=== PATIENT | male | born 1970 | race Caucasian/White ===

== ENCOUNTER 2024-01-12 08:03 | Day surgery (SDC) | payer OTHER, SELFPAY ==
[2024-01-12] VITALS (23 sets, daily range): BP systolic 129–192; BP diastolic 80–114; PULSE 85–108; RESP 14–28; TEMP 36.4–36.6; O2SAT 93–99; BMI 26.6
--- NOTE | 2024-01-12 08:13 | ED.GENADUL_ITS ---
Discharge Plan Disposition Patient Disposition: Admit to [facility] Condition: Stable Condition: Good Discharge Details Chief Complaint: Abd Prob Clinical Impression: Obstruction of esophagus due to food impaction Attending Provider: Kashif Sousa Primary Care Provider: Olga,Local ED Provider: Brandon Guerrero Discharge Instructions Activity:: Activity as Tolerated Diet:: Soft and liquid Discharge Orders Discharge Orders: Discharge Order (Routine); Ordered 01/12/24 Ordered By: Kashif Sousa Discharge Data Discharge Date/Time-TO BE ENTERED AT DEPARTURE: 01/12/24 11:07 HPI General Date/Time Provider Initiated Documentation: 01/12/24 08:06 . HPI Narrative: 53 year-old male presents to ED today by POV/ambulating with a chief complaint of feels like a bit of steak is caught in his esophagus since last night around dinnertime, cannot swallow anything without it coming right back up. Quality described as central chest pain directly resulted from feeling of incomplete swallow last night, no radiation to severe ETOH use, fever, bloody emesis, shortness of breath, cough. Severity is described as 10/10. Palliating factors include nothing helping. Provoking factors include nothing specific. Patient not anticoagulated. Related Data Home Medications Medication Instructions Recorded Confirmed gabapentin 100 mg capsule 100 mg PO TID 01/12/24 01/12/24 meloxicam 15 mg tablet 15 mg PO DAILY 01/12/24 01/12/24 pantoprazole 40 mg tablet,delayed 40 mg PO DAILY #30 tabs 01/12/24 release (Protonix) Previous Rx's Medication Instructions Recorded pantoprazole 40 mg tablet,delayed 40 mg PO DAILY #30 tabs 01/12/24 release (Protonix) Allergies Allergy/AdvReac Type Severity Reaction Status Date / Time No Known Allergies Allergy Unverified 01/12/24 08:07 General Stated Complaint: Abd Prob VIVIAN: 3 Review of Systems All systems reviewed & are unremarkable except as noted in HPI and below Exam Narrative Exam Narrative: GENERAL APPEARANCE: Well-nourished, non-toxic, awake and alert, atraumatic, no acute distress. SKIN: Warm, pink, dry, intact, without rashes/lesions/ulcerations. HEAD: Normocephalic, atraumatic, normal hair distribution for gender/age. EYES: Pupils PERRLA, EOMs intact without nystagmus, normal conjunctiva, no exudates on lids/lashes. ENT: Nares patent, no circumoral cyanosis, no facial swelling NECK: Supple, trachea midline, painless cervical ROM. LUNGS/CHEST: Lungs CTA bilaterally- mild rales diffusely without hypoxia, non- labored respirations, normal A/P diameter, symmetrical expansion, no chest wall deformity, no pleuritic chest tenderness HEART (CV/PV): Regular rate and rhythm without murmur, no peripheral edema, no JVD. ABDOMEN: Soft, non-distended, no guarding, no tenderness. MSK: Normal ROM, no swelling/deformity to bilateral UEs or LEs, moving all extremities without weakness, no cyanosis, spine midline without tenderness, normal curvature. NEURO: Mental Status AAOx4 - alert to person, place, time, events No facial droop, no forehead involvement. Motor: No focal weakness - strength 5/5 in bilateral UEs and LEs, proximal and distal, symmetric. Sensory: sensation intact to light touch globally. Gait normal: patient ambulated without ataxia into ED room. PSYCH: euthymic, cooperative, pleasant, appropriate speech Course Vital Signs Vital signs: Vital Signs Temperature 36.5 C 01/12/24 08:08 Pulse 96 H 01/12/24 08:08 Respiratory Rate 16 01/12/24 08:08 Blood Pressure 134/91 H 01/12/24 08:08 Pulse Oximetry 96 01/12/24 08:08 Temperature 36.5 C 01/12/24 08:08 Temperature Source Temporal Artery Scan 01/12/24 08:08 Pulse 96 H 01/12/24 08:08 Respiratory Rate 16 01/12/24 08:08 Respiratory Effort Normal, Non-Labored 01/12/24 08:09 Blood Pressure 134/91 H 01/12/24 08:08 Blood Pressure Position Sitting 01/12/24 08:08 Pulse Oximetry 96 01/12/24 08:08 Oxygen Delivery Method Room Air 01/12/24 08:08 Oxygen Flow Rate 0 01/12/24 08:08 Pain Level 9 01/12/24 08:08 Medical Decision Making This dictation utilizes [id number] dictation software and may contain unedited grammatical errors. 53 y/o M presents to ED today with a chief complaint of esophageal food bolus of steak from dinnertime last night. Endorses central chest pain, denies shortness of breath, cough, dizziness, near syncope. Patient denies severe ETOH use and denies vomiting marla blood, questions red tinge to some vomitus but did have a half a glass of red wine with dinner. Patients' medical history: Noncontributory, takes meloxicam and gabapentin for MSK reasons, Protonix for GERD. Family and social history: Noncontributory. Pertinent exam findings / vital signs include benign cardiopulmonary exam-some mild Rales but I do not suspect any aspiration pneumonia at this time, no coughing. Neuro intact, nontoxic vitals Differential / pathologies of concern include esophageal food bolus, Anastacia- Hurst tear, less likely Boerhaave syndrome as the patient has had many hours onset and is afebrile and not toxic, ACS is less likely as well. Diagnostic studies of: -CBC, CMP, Lactate, Lipase, Trop I, PT/PTT, Type and Screen, CT Chest & Neck w Contrast. -CBC shows leuks 10.9 -Coags WNL -CMP benign -Lactate WNL -Lipase neg -trop negative -CT shows multi level esohpageal obstructions with fluid in between two solid bolus' Interventions of: -on arrival attempted EZ Gas granules & Coca-Cola to dissolve food bolus without relief, added Ativan- no relief - admitted to Gen Surg for EGD to clear the bolus. ED Course/Assessment/Plan: 53-year-old male presents with likely food bolus obstructing his esophagus since dinnertime last night where he ate steak. He denies severe EtOH use, he is unable to clear the food bolus with easy gas granules and Coca-Cola, I added Ativan which is also ineffective. I consulted with general surgery Dr. Sousa who accepted the patient for admission likely EGD to clear his esophageal bolus, he received 1 mg hydromorphone prior to admission. No complications in department. Findings not consistent with ACS, his troponin is negative with reliable onset, no sign of esophageal perforation or Anastacia-Hurst tear on CT and he is not vomiting marla blood. Disposition of Obstruction of Esophagus due to Food Impaction. Patient verbalized understanding of the plan and return to ED criteria and engaged in shared decision making. Medical Records Medical records reviewed: Yes I reviewed the patient's medical records. Medical records narrative: [facility] here. Imaging Data Radiologic Study: Attestation: I personally reviewed and interpreted this imaging study as follows: Imaging: CT Scan Radiologist's impression: EXAM: CT NECK CHEST W CLINICAL HISTORY: esophageal pain TECHNIQUE: Imaging Protocol: Axial computed tomography images with coronal and sagittal reformatted images were created and reviewed CONTRAST MATERIAL: Intravenous: Omnipaque 350Contrast volume:120 mL. COMPARISON: No exams were available for comparison FINDINGS: Orbits and orbital soft tissues: Within normal limits. Visualized paranasal sinuses: There is mild mucosal thickening in the maxillary sinuses bilaterally. The remaining visualized paranasal sinuses and mastoid air cells are clear. Nasopharynx: Within normal limits. Oropharynx: Within normal limits. Hypopharynx: Within normal limits. Larynx: Within normal limits. Retropharyngeal space: Within normal limits. Parotids/submandibular: Within normal limits. Thyroid gland: Within normal limits. Lymphadenopathy: There is scattered lymph nodes seen along the level one to level three all measuring less than 8 mm in short axis diameter which are physiologic in nature. Trachea: Within normal limits. Lung apices: Mild paraseptal emphysematous changes are present. No infiltrates are seen in the lung apices. Bones: Within normal limits for the patient's age. Carotids/Jugular: Within normal limits. Soft tissues: Within normal limits. Tracheobronchial tree: Patent where visualized. No debris is seen within the airway. No mucous plugging is present. Pulmonary parenchyma: Mild paraseptal emphysematous changes are present. No focal consolidating infiltrates are seen. No architectural distortion. Mediastinum and Ratna: No dominant adenopathy or fluid collection. There is a bolus of material seen within the upper soft the guests (series 8, images [id number] 152). This may represent ingested material. There is an air-fluid level seen in the mid and distal esophagus. There also is a bolus of material seen in the distal esophagus at the gastroesophageal junction (series 8, image [id number]). No pneumomediastinum. Thyroid gland: Unremarkable. Pleura: No effusion or pneumothorax. Heart: The heart is not dilated. Mild coronary artery calcification is present. No pericardial effusion. Aorta: Thoracic aorta non-dilated. No evidence of dissection. Pulmonary arteries: Due to the timing of the bolus, pulmonary artery opacification is suboptimal for emboli. Upper abdomen: Fatty infiltration of the liver. Simple right renal cysts. No follow-up is recommended. Lymph nodes: Within normal limits. Bones: Old right rib fractures. There is a subacute fracture of the posterior aspect of the right 7th rib. Soft tissues: Unremarkable. IMPRESSION: 1. Bolus of soft tissue seen in the upper esophagus and at the gastroesophageal junction which may reflect retained ingested material. No evidence of aspiration, pneumoperitoneum or bone density material. No bowel wall thickening. 2. No acute pulmonary process. 3. Subacute fracture of the posterior aspect of the right 7th rib. 4. Findings were discussed with Brandon Guerrero at 10:30 a.m. on 01/12/2024. Lab Data Lab results reviewed: Yes I reviewed the patient's lab results. Labs: Laboratory Tests Range/Units 01/12/24 08:37 WBC (4.4-10.8) 10^3/uL 10.93 H RBC (4.36-5.78) 10^6/uL 4.27 L Hgb (13.5-17.5) g/dL 14.4 Hct (40.0-50.0) % 42.5 MCV (80-95) fL 100 H MCH (27.0-33.0) pg 33.7 H MCHC (32.0-36.0) % 33.9 RDW (11.8-14.1) % 12.4 Plt Count (130-400) 10^3/uL 295 MPV (8.0-11.0) fL 10.3 Immature Gran % 0.4 Neutrophils % 67.4 Lymphocytes % 20.0 Monocytes % 8.7 Eosinophils % 2.8 Basophils % 0.7 Nucleated RBC % (0.0-0.3) % 0.0 Absolute Neutrophils (1.2-6.7) 10^3/uL 7.37 H Absolute Lymphocytes (1.2-3.4) 10^3/uL 2.19 Absolute Monocytes (0.1-0.8) 10^3/uL 0.95 H Absolute Eosinophils (0.0-0.7) 10^3/uL 0.31 Absolute Basophils (0.0-0.2) 10^3/uL 0.08 PT (9.1-11.1) sec 10.1 INR (0.9-1.1) 1.0 APTT (23.6-32.8) sec 24.3 VBG Lactate (0.6-1.4) mmol/L 1.1 Sodium (136-145) mmol/L 142 Potassium (3.5-5.1) mmol/L 4.2 Chloride (98-107) mmol/L 104 Carbon Dioxide (21.0-32.0) mmol/L 23.8 Anion Gap (3-11) mmol/L 14.2 H BUN (7-18) mg/dL 9 Creatinine (0.70-1.30) mg/dL 1.0 Est GFR (CKD-EPI 2020) (mL/min/1.73m2) 90.00 Glucose (74-106) mg/dL 88 Calcium (8.5-10.1) mg/dL 9.2 Total Bilirubin (0.2-1.0) mg/dL 1.1 H AST (15-37) U/L 74 H ALT (16-63) U/L 99 H Alkaline Phosphatase (46-116) U/L 87 Troponin I (< or =60) ng/L < 50 Total Protein (6.4-8.2) g/dL 8.5 H Albumin (3.4-5.0) g/dL 4.1 Lipase (16-77) U/L 18 Patient ABO/Rh A Positive Antibody Screen NEGATIVE Quality:SDOH Health Related Social Needs: No Data to Display PFSH All Active Problems (Updated 01/13/24 @ 15:14 by LEONORA [place]) Obstruction of esophagus due to food impaction (Acute) Esophageal foreign body (Acute) Social History Smoking/Tobacco Use Status: Never Smoking risk assessment performed?: Yes Alcohol Intake: current Alcohol Intake frequency: holidays/special occasions only Drug use: Rarely Substance use type: marijuana Housing: house Do you feel safe at home: Yes Do you feel safe in your relationship?: Yes
[2024-01-12] MEDS: Simethicone/Sod Bicarb/Cit Ac, 4 gram PACKET 1 PACKET PO (08:24)
[2024-01-12] MEDS: ACETAMINOPHEN 1,000 MG/100 ML BTL 400 MG IVPB (08:40)
[2024-01-12 08:44] LABS: Abs Immature Grans 0.04 10^3/uL (0.0-0.06); Absolute Basophil Count 0.08 10^3/uL (0.0-0.2); Absolute Eosinophil Count 0.31 10^3/uL (0.0-0.7); Absolute Lymphocyte Count 2.19 10^3/uL (1.2-3.4); Absolute Monocyte Count 0.95 10^3/uL (0.1-0.8); Basophils % 0.7; Eosinophils % 2.8; HCT 42.5 % (40.0-50.0); HGB 14.4 g/dL (13.5-17.5); Immature Grans % 0.4; MCH 33.7 pg (27.0-33.0); MCHC 33.9 % (32.0-36.0); MCV 100 fL (80-95); MPV 10.3 fL (8.0-11.0); Monocytes % 8.7; Neutrophils % 67.4; Platelet Count 295 10^3/uL (130-400); RBC 4.27 10^6/uL (4.36-5.78); RDW 12.4 % (11.8-14.1); RDW-SD 45.6 fL; WBC 10.93 10^3/uL (4.4-10.8)
[2024-01-12 08:45] LABS: Lactate 1.1 mmol/L (0.6-1.4)
[2024-01-12 08:47] LABS: Absolute Neutrophil Count 7.37 10^3/uL (1.2-6.7)
[2024-01-12 09:08] LABS: ALT 99 U/L (16-63); AST 74 U/L (15-37); Albumin 4.1 g/dL (3.4-5.0); Alkaline Phosphatase 87 U/L (46-116); Anion Gap 14.2 mmol/L (3-11); BUN 9 mg/dL (7-18); Bilirubin, Total 1.1 mg/dL (0.2-1.0); CO2 23.8 mmol/L (21.0-32.0); Calcium 9.2 mg/dL (8.5-10.1); Chloride 104 mmol/L (98-107); Glucose 88 mg/dL (74-106); Lipase 18 U/L (16-77); PTT Activated 24.3 sec (23.6-32.8); Potassium 4.2 mmol/L (3.5-5.1); Prothrombin Time 10.1 sec (9.1-11.1); Sodium 142 mmol/L (136-145); Total Protein 8.5 g/dL (6.4-8.2); Troponin I < 50 ng/L (< or =60)
[2024-01-12] MEDS: Normal Saline - Diluent 50 ML VIAL IJ (09:22)
[2024-01-12] MEDS: Omnipaque 350 MG/ML 100 ML BTL IJ (09:23)
[2024-01-12] MEDS: Omnipaque 350 MG/ML 50 ML BTL 20 ML IJ (09:26)
--- NOTE | 2024-01-12 09:35 | DI.CT_ITS ---
Exam(s) CT NECK CHEST W EXAM: CT NECK CHEST W CLINICAL HISTORY: esophageal pain TECHNIQUE: Imaging Protocol: Axial computed tomography images with coronal and sagittal reformatted images were created and reviewed CONTRAST MATERIAL: Intravenous: Omnipaque 350Contrast volume:120 mL. COMPARISON: No exams were available for comparison FINDINGS: Orbits and orbital soft tissues: Within normal limits. Visualized paranasal sinuses: There is mild mucosal thickening in the maxillary sinuses bilaterally. The remaining visualized paranasal sinuses and mastoid air cells are clear. Nasopharynx: Within normal limits. Oropharynx: Within normal limits. Hypopharynx: Within normal limits. Larynx: Within normal limits. Retropharyngeal space: Within normal limits. Parotids/submandibular: Within normal limits. Thyroid gland: Within normal limits. Lymphadenopathy: There is scattered lymph nodes seen along the level one to level three all measurin g less than 8 mm in short axis diameter which are physiologic in nature. Trachea: Within normal limits. Lung apices: Mild paraseptal emphysematous changes are present. No infiltrates are seen in the lung apices. Bones: Within normal limits for the patient's age. Carotids/Jugular: Within normal limits. Soft tissues: Within normal limits. Tracheobronchial tree: Patent where visualized. No debris is seen within the airway. No mucous plugg ing is present. Pulmonary parenchyma: Mild paraseptal emphysematous changes are present. No focal consolidating infi ltrates are seen. No architectural distortion. Mediastinum and Ratna: No dominant adenopathy or fluid collection. There is a bolus of material seen w ithin the upper soft the guests (series 8, images [id number]). This may represent ingested material. Th ere is an air-fluid level seen in the mid and distal esophagus. There also is a bolus of material se en in the distal esophagus at the gastroesophageal junction (series 8, image [id number]). No pneumomedi astinum. Thyroid gland: Unremarkable. Pleura: No effusion or pneumothorax. Heart: The heart is not dilated. Mild coronary artery calcification is present. No pericardial effus ion. Aorta: Thoracic aorta non-dilated. No evidence of dissection. Pulmonary arteries: Due to the timing of the bolus, pulmonary artery opacification is suboptimal for emboli. Upper abdomen: Fatty infiltration of the liver. Simple right renal cysts. No follow-up is recommen ded. Lymph nodes: Within normal limits. Bones: Old right rib fractures. There is a subacute fracture of the posterior aspect of the right 7t h rib. Soft tissues: Unremarkable. IMPRESSION: 1. Bolus of soft tissue seen in the upper esophagus and at the gastroesophageal junction which may re flect retained ingested material. No evidence of aspiration, pneumoperitoneum or bone density materi al. No bowel wall thickening. 2. No acute pulmonary process. 3. Subacute fracture of the posterior aspect of the right 7th rib. 4. Findings were discussed with Brandon Guerrero at 10:30 a.m. on 01/12/2024. RADIATION DOSE DELIVERED: 869.77mGy.cm Total DLP 869.77mGy.cm Total DLP DATA REPOSITORY: All CT scans at this facility are submitted to the National Radiology Data Registry (NRDR) Dose Index Registry (DIR) with the [employer] ([employer]). RADIATION OPTIMIZATION: All CT scans at this facility use at least one of these dose optimization te chniques: automated exposure control; mA and/or kV adjustment per patient size (includes targeted exa ms where dose is matched to clinical indication); or iterative reconstruction.
[2024-01-12] MEDS: LORazepam 2 MG/ML VIAL 1 MG IVP (09:51)
[2024-01-12] MEDS: HYDROmorphone 2 MG/ML SYR 1 MG IVP (10:55)
--- NOTE | 2024-01-12 10:59 | ANES.PREOP_ITS ---
General Info Date of Service Date Performed: 01/12/24 Height: 5 ft 9 in Weight: 81.647 kg Body Mass Index (BMI): 26.6 Surgical Procedure: Operation Date: 01/12/24 11:20 Proposed Procedure Side Surgeon p Gastroscopy Kashif Sousa MD Meds Allergies and Home Medications Allergies Allergy/AdvReac Type Severity Reaction Status Date / Time No Known Allergies Allergy Unverified 01/12/24 08:07 Home Medication Medication Instructions Recorded gabapentin 100 mg capsule 100 mg PO TID 01/12/24 meloxicam 15 mg tablet 15 mg PO DAILY 01/12/24 Current Visit Medications: Current Medications Generic Name Dose Route Start Last Admin Trade Name Rafiq PRN Reason Stop Dose Admin Iohexol 100 ml 01/12/24 09:30 01/12/24 09:23 Omnipaque 350 Mg/Ml 100 Ml Btl IJ 02/11/24 23:59 100 ml DIRECTED CHIKI Administration Iohexol 20 ml 01/12/24 10:00 01/12/24 09:26 Omnipaque 350 Mg/Ml 50 Ml Btl IJ 02/11/24 23:59 20 ml DIRECTED CHIKI Administration Sodium Chloride 50 ml 01/12/24 09:30 01/12/24 09:22 Normal Saline - Diluent 50 Ml Vial IJ 50 ml .FOR DI USE CHIKI Administration PFS Tobacco Smoking/Tobacco Use Status: Never Alcohol Alcohol Intake: current Alcohol intake frequency: holidays/special occasions only Substance Use Substance use: Rarely Substance use type: marijuana Vital Signs and Lab Results Vital Signs Most Recent Vital Signs in EMR: Most Recent Vital Signs Temp Pulse Resp BP Pulse Ox 36.5 C 96 H 16 134/91 H 96 01/12/24 08:23 01/12/24 08:23 01/12/24 08:23 01/12/24 08:23 01/12/24 08:23 Lab Results 01/12/24 08:37 01/12/24 08:37 Blood Type / Crossmatch: 2 Patient ABO/Rh A Positive 01/12/24 Antibody Screen NEGATIVE 01/12/24 Complete Blood Count: 2 White Blood Count 10.93 10^3/uL (4.4-10.8) H 01/12/24 08:37 Red Blood Count 4.27 10^6/uL (4.36-5.78) L 01/12/24 08:37 Hemoglobin 14.4 g/dL (13.5-17.5) 01/12/24 08:37 Hematocrit 42.5 % (40.0-50.0) 01/12/24 08:37 Platelet Count 295 10^3/uL (130-400) 01/12/24 08:37 Venous Blood Lactate 1.1 mmol/L (0.6-1.4) 01/12/24 08:37 Complete Metabolic Panel: 2 Sodium 142 mmol/L (136-145) 01/12/24 08:37 Potassium 4.2 mmol/L (3.5-5.1) 01/12/24 08:37 Chloride 104 mmol/L (98-107) 01/12/24 08:37 Carbon Dioxide 23.8 mmol/L (21.0-32.0) 01/12/24 08:37 BUN 9 mg/dL (7-18) 01/12/24 08:37 Creatinine 1.0 mg/dL (0.70-1.30) 01/12/24 08:37 Est GFR (CKD-EPI 2020) 90.00 (mL/min/1.73m2) 01/12/24 08:37 Calcium 9.2 mg/dL (8.5-10.1) 01/12/24 08:37 Albumin 4.1 g/dL (3.4-5.0) 01/12/24 08:37 Glucose 88 mg/dL (74-106) 01/12/24 08:37 Liver Function Panel: 2 Alanine Aminotransferase (ALT/SGPT) 99 U/L (16-63) H 01/12/24 0 8:37 Aspartate Amino Transf (AST/SGOT) 74 U/L (15-37) H 01/12/24 08: 37 Coagulation Panel: 2 INR International Normalized Ratio 1.0 (0.9-1.1) 01/12/24 08:3 7 Prothrombin Time 10.1 sec (9.1-11.1) 01/12/24 08:37 Activated Partial Thromboplast Time 24.3 sec (23.6-32.8) 08:37 Cardiac Panel: 2 Troponin I < 50 ng/L (< or =60) 01/12/24 Arterial Blood Gas: 2 No Data to Display Venous Blood Gas: 2 No Data to Display Pancreas Panel: 2 Lipase 18 U/L (16-77) 01/12/24 08:37 Thyroid Panel: 2 No Data to Display Infectious Disease: 2 No Data to Display Blood Cultures: 2 No Data to Display Toxicology Panel: 2 No Data to Display Anesthesia Assessment and Plan Anesthesia History Personal History: No History of Anesthesia Complications Family History: No Family History of Anesthesia Complications Exercise Tolerance Exercise Tolerance: Metabolic Equivalents>4 Cardiac & Pulmonary Exam Cardiac Exam: Normal S1/S2 Heart Sounds Pulmonary Exam: Clear Bilateral Breath Sounds Implantable Cardiac Device Does patient have a Pacemaker or an ICD?: No Airway Exam Known Difficult Airway: No Mallampati Class: 2 Mouth Opening: Normal (> 3cm) Thyromental Distance: Greater than 3 cm Neck Range of Motion: Full ROM Neck Circumference: Normal Teeth Condition: Generalized Poor Dentition ASA Classification ASA Score: ASA 2 Emergency Case?: Yes NPO Status NPO Status: Full Stomach (Has been vomiting recently, none in the last 30 minutes) Anesthesia Plan Resuscitation Status: Full Code Anesthesia Technique: General Anesthesia Airway Planned: Endotracheal Tube (RSI) Monitors Used: Standard Monitors
--- NOTE | 2024-01-12 11:37 | W.PREOPHP ---
Assessment and Plan Assessment and plan (1) Esophageal foreign body: Status: Acute Assessment and plan: This certainly seems most consistent with a retained food bolus in the esophagus. I think he is exhausted non-procedural therapies, and that EGD is the most reasonable course of action here. Explained the risks and benefits of the procedure, and he was able to provide informed consent. Will move to the operating room emergently in an effort to clear the esophagus. History of Present Illness History of Present Illness Chief Complaint: Retained food bolus Narrative: John is 53 years old. He was eating dinner last night when he got the sensation of having food stuck in his throat. He tried to clear it on his own several times. He figured it may resolve through the course of the night, but he had difficulty sleeping, as well as increased amounts of discomfort and retching. He came to the emergency department for evaluation there. While in the ER, he underwent a CT of the chest that demonstrated multiple retained food boluses along the length of the esophagus. Attempts were made to clear in the ER, but they were unsuccessful. He tells me that this happened on several occasions in the past over many years. He has never had to seek any type of medical attention for it. He is never undergone any type of surgery involving the chest or esophagus. He is a non-smoker, but he does drink alcohol. PFSH All Active Problems (Updated 01/12/24 @ 11:45 by Kashif Sousa MD) Esophageal foreign body (Acute) Social History Smoking/Tobacco Use Status: Never Smoking risk assessment performed?: Yes Alcohol Intake: current Alcohol Intake frequency: holidays/special occasions only Drug use: Rarely Substance use type: marijuana Housing: house Do you feel safe at home: Yes Do you feel safe in your relationship?: Yes Meds Allergies and Home Medications Allergies Allergy/AdvReac Type Severity Reaction Status Date / Time No Known Allergies Allergy Unverified 01/12/24 08:07 Home Medications Medication Instructions Recorded Confirmed Type gabapentin 100 mg capsule 100 mg PO TID 01/12/24 01/12/24 History meloxicam 15 mg tablet 15 mg PO DAILY 01/12/24 01/12/24 History Exam Const General: cooperative and healthy appearing Nutritional Appearance: average body habitus Orientation: alert, awake and oriented x3 Resp Auscultation: clear to auscultation bilaterally Cardio Rate: regular rate Rhythm: regular rhythm GI Palpation: soft, no guarding and nontender Results Labs 01/12/24 08:37 01/12/24 08:37 Labs: Laboratory Results - last 24 hr 01/12/24 08:37 WBC 10.93 H RBC 4.27 L Hgb 14.4 Hct 42.5 MCV 100 H MCH 33.7 H MCHC 33.9 RDW 12.4 Plt Count 295 MPV 10.3 Immature Gran % 0.4 Neutrophils % 67.4 Lymphocytes % 20.0 Monocytes % 8.7 Eosinophils % 2.8 Basophils % 0.7 Nucleated RBC % 0.0 Absolute Neutrophils 7.37 H Absolute Lymphocytes 2.19 Absolute Monocytes 0.95 H Absolute Eosinophils 0.31 Absolute Basophils 0.08 PT 10.1 INR 1.0 APTT 24.3 VBG Lactate 1.1 Sodium 142 Potassium 4.2 Chloride 104 Carbon Dioxide 23.8 Anion Gap 14.2 H BUN 9 Creatinine 1.0 Est GFR (CKD-EPI 2020) 90.00 Glucose 88 Calcium 9.2 Total Bilirubin 1.1 H AST 74 H ALT 99 H Alkaline Phosphatase 87 Troponin I < 50 Total Protein 8.5 H Albumin 4.1 Lipase 18 Patient ABO/Rh A Positive Antibody Screen NEGATIVE Last Vital Signs Temp 97.7 F 01/12/24 08:23 Pulse 91 H 01/12/24 10:31 Resp 24 01/12/24 10:50 BP 166/104 H 01/12/24 10:31 Pulse Ox 96 01/12/24 08:23
[2024-01-12] MEDS: Lactated Ringers 1,000 ML 30 ML IV (11:47)
--- NOTE | 2024-01-12 12:47 | W.PM.ENDDOP ---
Date of service: 01/12/24 Time of Service: 12:47 Endoscopy Report DATE OF PROCEDURE: 01/12/24 PRE-OP DIAGNOSIS: Retained esophageal food bolus POST-OP DIAGNOSIS: same PROCEDURE: EGD with retrieval of food bolus SURGEON: Kashif Sousa ANESTHESIA TYPE: General LMA/ETT ESTIMATED BLOOD LOSS: 5 PATHOLOGY: none sent COMPLICATIONS: None DISPOSITION: PACU INDICATIONS: John is a 53-year-old male with dysphagia since dinner last night. He had retching, difficulty swallowing. Clinical features were consistent with a retained food bolus. He underwent a CT scan that confirmed that diagnosis PROCEDURE START TIME: 11:58 PROCEDURE END TIME: 12:39 FINDINGS: Retained esophageal food bolus consistent with meat PROCEDURE DESCRIPTION: After the initiation of anesthesia, and with the assistance of a bite block, I advanced a standard gastroscope through the mouth past the hypopharynx and into the esophagus.? About custodial along the length of the esophagus in the midportion, I encountered a retained food bolus. I was not able to advance it distally. Next, using the endoscopic Rafa grasper, I started removing the food bolus. Multiple portions were pulled out. The surrounding esophagus with erythematous and friable. After tedious retrieval of the food bolus, I was able to clear the length of the esophagus and passed the scope beyond the lower esophageal sphincter into the stomach. Retroflexion was performed. I did not see any evidence of hiatal hernia. The camera was brought back up into the esophagus proper. There appeared to be a Anastacia-Hrust type tear along the posterior lateral aspect of the esophagus. There is no active bleeding it appeared to only involve the mucosa. The esophagus was then irrigated all clear. I advanced the camera back into the stomach, and emptied out all of the air. The camera was then brought to the esophagus and was examined 1 last time. I did not see any evidence of esophageal webs or strictures. I did not see any evidence of any diverticula. The camera was brought out along the length of the esophagus and the patient was extubated transferred to the recovery unit.
--- NOTE | 2024-01-12 14:38 | W.PM.DSUDISC ---
Date of service: 01/12/24 Time of Service: 14:38 Discharge Plan Disposition Patient Disposition: Home Condition: Good Discharge Details Reason For Visit: Gastro pain Attending Provider: Kashif Sousa Primary Care Provider: No,Local Home Meds and New Rx's Prescriptions: New pantoprazole [Protonix] 40 mg tablet,delayed release (DR/EC) 40 mg PO DAILY Qty: 30 0RF Rx Instructions: Take 1 tablet by mouth every day Continued gabapentin 100 mg capsule 100 mg PO TID meloxicam 15 mg tablet 15 mg PO DAILY Discharge Instructions Instructions: Upper Endoscopy (DC) Additional Instructions: John, as you already know, you had a large portion of meat stuck in your esophagus (your swallowing pipe). And while we were able to remove this all without any difficulty. Your esophagus is quite irritated and inflamed from having the food stuck there. My recommendation was that you spend the night in the hospital for observation and intravenous antacid therapy. However, I understand your desire to go home. I have placed a prescription for Protonix, which is a strong antacid medication. I would like you to pick this up today and start taking it today. Additionally, like we talked about, I recommend that you stay on a liquid and soft diet for at least 72 hours. When you start to resume some regular food, it needs to be cut into bite-size pieces no bigger than a postage stamp. I recommend that you [facility], and make an appointment for follow-up with them. Like I mentioned, I recommend a follow-up EGD in 4 to 6 weeks to see if the source of the food getting stuck can be identified. If you have any difficulty making those arrangements with the [facility], please let my office know. Activity:: Activity as Tolerated Diet:: Soft and liquid Discharge Orders Discharge Orders: Discharge Order (Routine); Ordered 01/12/24 Ordered By: Kashif Sousa DS: Diagnosis Discharge Diagnosis (1) Esophageal foreign body: Status: Acute Asessment and Plan: Discharge home with outpatient follow-up at the CT
--- NOTE | 2024-01-12 14:46 | W.ANESPOSTOP ---
Postoperative Evaluation Date, Time and Location Date Performed: 01/12/24 Time Performed: 14:46 Patient Location: Day Surgery Unit Vital Signs Most Recent Imported Vital Signs: Most Recent Vital Signs Temp Pulse Resp BP Pulse Ox 36.6 C 94 H 18 149/90 H 98 01/12/24 13:40 01/12/24 13:40 01/12/24 13:40 01/12/24 13:40 01/12/24 13:40 Pain Score Most Recent Pain Score: Most Recent Pain Score Pain Level 4 01/12/24 13:40 Assessment Mental Status: Awake (Alert & Oriented to Patient Baseline) Airway and Respiratory Function: Patent airway with normal (patient baseline) respiratory exam Cardiovascular Function: Hemodynamically Stable Hydration Status: Adequately Hydrated Nausea & Vomiting: No Nausea or Vomiting Pain: Pt. Denies Any Pain Peripheral Nerve Block: Patient did not receive a nerve block
== END 2024-01-12 14:50 | disposition home or self-care (01) ==
LOC: ER 10:53 → SUR 11:05
PROVIDERS: Emergency Provider Physician Assistant; Visit Provider Surgery
PROC: 0DJ68ZZ Inspection of Stomach, Via Natural or Artificial Opening Endoscopic (ICD-10-PCS; CPT 43235; principal; 2024-01-12 11:15)
DX: T18.108A Unspecified foreign body in esophagus causing other injury, initial encounter (principal); R13.10 Dysphagia, unspecified
CPT/HCPCS: 43247; 70491; 80053; 83690; 86850; 86900; 86901; 71260; 83605; 84484; 85025; 85610; 85730; J0131; J0330; J1100; J1170; J2001; J2060; J2250; J2371; J2405; J2704; J3490; Q9967